=== PATIENT | female | born 1960 | race Caucasian/White ===

== ENCOUNTER 2018-06-23 13:31 | Emergency (ER) | payer MEDICARE, OTHER ==
[~2018-06-23] VITALS: Ht 160 cm; Wt 63.5 kg
[2018-06-23] MEDS ORDERED: HYDROMORPHONE 1 MG/1 ML DISP.SYRIN IM ONE ×2 (14:00→15:00)
[2018-06-23] MEDS ORDERED: ONDANSETRON 4 MG/2 ML VIAL IM ONE ×2 (14:00→15:00)
[2018-06-23] MEDS ORDERED: ONDANSETRON 4 MG/2 ML VIAL ONE ×2 (14:10→15:05)
[2018-06-23] MEDS ORDERED: HYDROMORPHONE 1 MG/1 ML DISP.SYRIN ONE ×2 (14:10→15:05)
--- NOTE | 2018-06-23 15:18 | NUR ---
PT WAS EVALUATED BY DR HERNANDEZ. PT WAS D/C'd TO HOME. D/C INSTRUCTIONS GIVENM TO THE PT.
[2018-06-23 15:19] VITALS: BP 126/81
== END 2018-06-23 15:21 | disposition home or self-care (01) ==
LOC: ER 13:31
DX: S80.01XA Contusion of right knee, initial encounter (principal); W05.0XXA Fall from non-moving wheelchair, initial encounter; Y93.89 Activity, other specified; Y92.89 Other specified places as the place of occurrence of the external cause; Y99.8 Other external cause status
CPT/HCPCS: 73564; 73610; 73630; 96372 ×4; 99283; J1170 ×2; J2405 ×2; A4663